=== PATIENT | female | born 1990 | race Caucasian/White ===

== ENCOUNTER 2018-01-27 20:01 | Emergency (ER) | payer SELFPAY ==
[~2018-01-27] VITALS: Ht 160 cm; Wt 88.8 kg
[~2018-01-27 20:01] MED LIST: CEPH500C3 PO; DIFL150T PO; LIDO2GEL12 TOP; METR250 PO; Z.0.NO CURRENT MEDS
[2018-01-27 20:09] VITALS: BP 152/88; PULSE 90; RESP 18; TEMP 98.4; O2SAT 99
[2018-01-27] MEDS ORDERED: ERYTOIN10 LEFT EYE (20:32)
--- NOTE | 2018-01-27 20:33 | PD ---
HPI Chief Complaint: Eye Problems/Injury Time Seen by Provider: 20:20 Travel History International Travel<30 days: No Contact w/Intl Traveler<30days: No Traveled to known affect area: No History of Present Illness HPI This is a 27-year-old female here with left eye irritation and redness 1 day. Denies injury or trauma. Does not wear contact lenses. She reports the area feels irritated and she has crusting yellow drainage from the eye. No visual changes. Symptom severity is mild to moderate. No aggravating or alleviating factors. PFSH Past Medical History Medical History: Denies Significant Hx Diminished Hearing: No Immunizations Current: Yes ?: Not LMP: 12/28/2017 : 1 Para: 0 Miscarriage: 1 : 0 Social History Alcohol Use: Yes (Occasional. Last use 4 days ago.) Tobacco Use: No Substance Use: No Allergies-Medications (Allergen,Severity, Reaction): Coded Allergies: Sulfa (Sulfonamide Antibiotics) (Unverified Allergy, Mild, RASH, 01/27/18) Reported Meds & Prescriptions Reported Meds & Active Scripts Active Diflucan (Fluconazole) 150 Mg Tab 150 Mg PO ONCE Xylocaine Jelly (Lidocaine Hcl) 2 % Gel 2 % TOP Q4-6HPRN Keflex (Cephalexin Monohydrate) 500 Mg Cap 500 Mg PO QID Flagyl (Metronidazole) 250 Mg Tab 250 Mg PO TID Reported No Current Meds (Miscellaneous Medication) Misc Review of Systems Except as stated in HPI: all other systems reviewed are Neg General / Constitutional: No: Fever Eyes: Positive: Redness HENT: No: Headaches Cardiovascular: No: Chest Pain or Discomfort Respiratory: No: Shortness of Breath Gastrointestinal: No: Abdominal Pain Genitourinary: No: Dysuria Physical Exam Narrative GENERAL: SKIN: Warm and dry. HEAD: Normocephalic. EYES: Left eye mildly injected with crusting noted at lashes. Pupils equal, round, reactive to light. EOMs intact. NECK: Supple, trachea midline. No JVD or lymphadenopathy. CARDIOVASCULAR: Regular rate and rhythm without murmurs, gallops, or rubs. RESPIRATORY: Breath sounds equal bilaterally. No accessory muscle use. Data Data Last Documented VS Vital Signs Date Time Temp Pulse Resp B/P (MAP) Pulse Ox O2 Delivery O2 Flow Rate FiO2 01/27/18 20:09 98.4 90 18 152/88 (109 99 MDM Medical Decision Making Medical Screen Exam Complete: Yes Emergency Medical Condition: Yes Differential Diagnosis Viral conjunctivitis, bacterial conjunctivitis, stye Narrative Course This is a 27-year-old female here with a simple case of conjunctivitis to left eye. She will be treated with erythromycin ointment. Return precautions were discussed. Diagnosis Primary Impression: Conjunctivitis Qualified Codes: H10.32 - Unspecified acute conjunctivitis, left eye Referrals: Primary Care Physician Additional Instructions: Antibiotic ointment as directed Scripts Erythromycin Opth Oint (Erythromycin Opth Oint) 5 Mg/Gm Oint 1 APPLIC LEFT EYE QID for Infection, #1 TUBE 0 Refills Prov: Kylie Spring 01/27/18 Disposition: 01 DISCHARGE HOME Condition: Stable Kylie Spring January 27, 2018 20:33
== END 2018-01-27 20:46 | disposition home or self-care (01) ==
LOC: PHEFT 20:01
DX: H10.32 Unspecified acute conjunctivitis, left eye (principal)
CPT/HCPCS: 99283